=== PATIENT | female | born 1975 | race Caucasian/White ===

== ENCOUNTER 2017-07-16 19:15 | Emergency (ER) | payer SELFPAY ==
[2017-07-16 19:28] VITALS: BP 116/63
--- NOTE | 2017-07-16 20:03 | ER Document Report ---
HPI - HPI Pain Level: 4 - REPRODUCTIVE Reproductive: DENIES: : Past Medical History - Social History Family History: Reviewed & Not Pertinent Pulmonary Medical History: Reports: Hx Asthma, Hx Bronchitis, Hx COPD, Hx Sleep Apnea Neurological Medical History: Reports: Hx Migraine, Hx Seizures Endocrine Medical History: Reports: Hx Diabetes Mellitus Type 2 GI Medical History: Reports: Hx Gastroesophageal Reflux Disease Psychiatric Medical History: Reports: Hx Bipolar Disorder, Hx Depression Past Surgical History: Reports: Hx Bowel Surgery, Hx Cholecystectomy, Hx Tubal Ligation - Immunizations Hx Diphtheria, Pertussis, Tetanus Vaccination: No Hx Pneumococcal Vaccination: 08/11/11 Vertical Provider Document - INFECTION CONTROL TRAVEL OUTSIDE OF THE [place] IN LAST 30 DAYS: No Course - Vital Signs Vital signs: Temp Pulse Resp BP Pulse Ox 99.1 F 72 18 116/63 99 07/16/17 19:26 07/16/17 19:26 07/16/17 19:26 07/16/17 19:26 07/16/17 19:26
[2017-07-16] MEDS ORDERED: TRAMADOL HCL 50 MG TABLET PO ONE (20:10)
[2017-07-16] MEDS ORDERED: SULFAMETHOXAZOLE/TRIMETHOPRIM 800-160 MG TABLET PO ONE (20:10)
--- NOTE | 2017-07-16 20:16 | ER Document Report ---
ED Skin Rash/Insect Bite/Abscs - General Chief Complaint: Abscess Stated Complaint: INSECT BITE Time Seen by Provider: 07/16/17 20:03 Mode of Arrival: Ambulatory Information source: Patient TRAVEL OUTSIDE OF THE [place] IN LAST 30 DAYS: No - HPI Patient complains to provider of: Tender/swollen area Notes: Patient is here with complaints of possible spider bite to the right knee. She states that 2 weeks ago she noticed what she thought was a spider bite to the medial aspect of the right knee. She states that she developed a painful swollen area that then turned to a ulcerated type area. She was concerned that it could be a brown recluse bite. States that it got red and seemed actually improved. She states that 2 days ago she put the same pants on and thought she felt something bite her on the knee again and she now has a red swollen area in the front of the patellar area. No fever. No diabetes. No numbness, tingling , weakness. No nausea, vomiting, diarrhea. No difficulty breathing or swallowing. She did not actually see what she was bit by. No other complaints at this time. - Related Data Allergies/Adverse Reactions: Penicillins Allergy (Mild, Verified 07/16/17 19:21) Hives morphine [Morphine] Adverse Reaction (Mild, Verified 07/16/17 19:21) abdominal pain ketorolac tromethamine [From Toradol] Adverse Reaction (Verified 07/16/17 19:21) abdominal pain Past Medical History - Social History Smoking Status: Current Every Day Smoker Family History: Reviewed & Not Pertinent Pulmonary Medical History: Reports: Hx Asthma, Hx Bronchitis, Hx COPD, Hx Sleep Apnea Neurological Medical History: Reports: Hx Migraine, Hx Seizures Endocrine Medical History: Reports: Hx Diabetes Mellitus Type 2 GI Medical History: Reports: Hx Gastroesophageal Reflux Disease Psychiatric Medical History: Reports: Hx Bipolar Disorder, Hx Depression Past Surgical History: Reports: Hx Bowel Surgery, Hx Cholecystectomy, Hx Tubal Ligation - Immunizations Hx Diphtheria, Pertussis, Tetanus Vaccination: No Hx Pneumococcal Vaccination: 08/11/11 Review of Systems - Review of Systems -: Yes All other systems reviewed and negative Physical Exam - Vital signs Vitals: Temp Pulse Resp BP Pulse Ox 99.1 F 72 18 116/63 99 07/16/17 19:26 07/16/17 19:26 07/16/17 19:26 07/16/17 19:26 07/16/17 19:26 - Notes Notes: GENERAL: alert, cooperative, nontoxic, no distress. HEAD: normocephalic, atraumatic EYES: conjunctiva pink without discharge, no external redness or swelling. EARS: no external swelling, no external redness NOSE: atraumatic, no external swelling MOUTH/THROAT: mucous membranes moist and pink NECK: soft, supple, full range of motion, no meningismus. CHEST: no distress, lungs clear and equal throughout. No wheezing, rales, rhonchi. CARDIAC: regular rate and rhythm, no murmur, normal capillary refill, normal pulses. BACK: full range of motion, no CVA tenderness. EXTREMITIES: full range of motion of all extremities. No redness, no swelling. NEURO: alert and oriented 3, no focal deficits, full range of motion of all extremities. PYSCH: appropriate mood, affect. Patient is cooperative. SKIN: pink, warm, dry, no rash. 1 cm ulcerated area to the right medial knee. No surrounding redness. Minimal tenderness. No fluctuant abscess. Small scabbed area to the patellar area of the right knee with tenderness to palpation in approximately 3 cm of surrounding erythema. Tenderness to palpation. No fluctuance. Full flexion and extension of the knee with no sign of joint effusion or joint infection. Course - Re-evaluation Re-evalutation: 07/16/17 20:13 Patient is nontoxic appearing with stable vitals. She is here with complaints of possible bite to her right knee. States that 2 weeks ago she developed a sore to the medial aspect of the right knee and she is concerned it could have been a brown recluse bite. She put same pants on again few days ago and felt like she was bit by something again on the knee and she now has what appears to be a very early abscess with some mild cellulitis. There is no sign of joint infection. She is afebrile. She is full range of motion of the joint. There is no circumferential redness. There is slightly tender to palpation. Is not fluctuant and does not appear to be ready for an I&D. At this point the patient will be given a dose of Bactrim and will be discharged home with a prescription for Bactrim as well as Ultram. Instructions to put warm compresses on the sore area. We outlined the redness on her knee. She was instructed to follow-up if this is not improving in the next 2 days, sooner for worsening pain, fever, increased redness, increased swelling, or for any further concerns. The patient's emergency department workup and current diagnosis were explained to the patient and or family. Follow-up instructions were provided. Medications if prescribed were discussed. Instructions for when to return to the emergency department including specific worrisome symptoms were discussed with the patient and/or family. - Vital Signs Vital signs: Temp Pulse Resp BP Pulse Ox 99.1 F 72 18 116/63 99 07/16/17 19:26 07/16/17 19:26 07/16/17 19:26 07/16/17 19:26 07/16/17 19:26 Discharge - Discharge Clinical Impression: Abscess of right knee Condition: Stable Disposition: HOME, SELF-CARE Instructions: Abscess ([facility]), Trimethoprim-Sulfa ([facility]), Oral Narcotic Medication ([facility]) Additional Instructions: Take medication as prescribed. Apply warm compresses to sore area. Follow-up if not improving in the next 2 days, sooner for worsening pain, fever, worsening redness or swelling, numbness, tingling, weakness, redness to the entire knee, or for any further concerns. The medication you were prescribed today may cause drowsiness. Do not drive or operate heavy machinery while taking this medication. Prescriptions: Tramadol HCl [Ultram 50 mg Tablet] 50 mg PO Q6HP PRN #10 tablet PRN Reason: Sulfamethoxazole/Trimethoprim [Bactrim Ds Tablet] 1 each PO BID #20 tablet Forms: Smoking Cessation Education Referrals: [facility] [Provider Group] - Follow up as needed
== END 2017-07-16 20:16 | disposition home or self-care (01) ==
LOC: ER 19:15
DX: L02.415 Cutaneous abscess of right lower limb (principal); E11.9 Type 2 diabetes mellitus without complications; J44.9 Chronic obstructive pulmonary disease, unspecified; F17.200 Nicotine dependence, unspecified, uncomplicated; Z88.0 Allergy status to penicillin; Z88.5 Allergy status to narcotic agent; Z88.8 Allergy status to other drugs, medicaments and biological substances
CPT/HCPCS: 99282

== ENCOUNTER 2018-04-11 01:14 | Emergency (ER) | payer SELFPAY ==
--- NOTE | 2018-04-11 02:38 | RADIOLOGY REPORT (SQ) ---
EXAM DESCRIPTION: XR CHEST 1 VIEW COMPLETED DATE/TME: 04/11/2018 01:48 CLINICAL HISTORY: 42 years, Female, rib pain, sob COMPARISON: Chest radiograph March 2014. NUMBER OF VIEWS: One TECHNIQUE: AP view of the chest LIMITATIONS: None. FINDINGS: Lungs are clear. There are no pleural abnormalities. The cardiac silhouette is mildly enlarged. Posterior sixth rib fracture on the right. The posterior right seventh rib is not clearly visualized. Questionable subcutaneous emphysema in the right breast but no pneumothorax is visualized. IMPRESSION: Acute appearing right posterior sixth rib fracture. The right seventh rib is not clearly visualized posteriorly and may be eroded. Recommend CT chest for further evaluation. copyright 2010 [employer]- All Rights Reserved
[2018-04-11] MEDS ORDERED: TRAMADOL HCL 50 MG TABLET PO ONE (02:41)
[2018-04-11] MEDS ORDERED: LIDOCAINE 5% (700 MG) TRANSDERMAL ADH..PATCH TP ONE (02:41)
[2018-04-11] MEDS ORDERED: OXYCODONE HCL IR 5 MG TABLET PO ONE (02:41)
[2018-04-11] MEDS ORDERED: ACETAMINOPHEN 325 MG TABLET PO ONE (02:41)
[2018-04-11] MEDS ORDERED: IPRATROPIUM/ALBUTEROL 0.5-2.5 MG/3 ML AMPUL NEB ONE (02:42)
[2018-04-11] MEDS ORDERED: HYDROCODONE/ACETAMINOPHEN 5-325 MG (6 TAB/ER DISP) PO PRN (02:43)
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
[2018-04-11 04:39] VITALS: BP 111/66
== END 2018-04-11 05:15 | disposition home or self-care (01) ==
LOC: ER 01:14
DX: S22.31XD Fracture of one rib, right side, subsequent encounter for fracture with routine healing (principal); V49.60XD Unspecified car occupant injured in collision with unspecified motor vehicles in traffic accident, subsequent encounter; J44.9 Chronic obstructive pulmonary disease, unspecified; F17.200 Nicotine dependence, unspecified, uncomplicated; E11.9 Type 2 diabetes mellitus without complications; Z88.0 Allergy status to penicillin
CPT/HCPCS: 94640; 99284; 71045; J7620

== ENCOUNTER 2018-08-20 21:36 | Emergency (ER) | payer SELFPAY ==
[2018-08-20] MEDS ORDERED: ONDANSETRON HCL INJ/PF 4 MG/2 ML SDV IM ONE (22:12)
--- NOTE | 2018-08-20 22:15 | ER Document Report ---
ED General - General Stated Complaint: OVERDOSE Time Seen by Provider: 08/20/18 22:06 Mode of Arrival: Medic Information source: Patient, Relative, Emergency Med Personnel Notes: This is a 42-year-old female with a history of asthma, seizures and polysubstance abuse who was brought in by EMS after an overdose. Patient was given intranasal Narcan in the field after which she became alert and oriented x4. Initially reported as agonal respirations on EMS arrival. Patient's daughter is in the emergency room and states that the patient has done this in the past. Patient states she is only used heroin 4 times in total. She is actively vomiting. TRAVEL OUTSIDE OF THE [place] IN LAST 30 DAYS: No - HPI Onset: Just prior to arrival Onset/Duration: Sudden Quality of pain: No pain Pain Level: Denies Associated symptoms: denies: Chest pain, Fever, Shortness of breath Exacerbated by: Denies Relieved by: Denies Similar symptoms previously: No Recently seen / treated by doctor: No - Related Data Allergies/Adverse Reactions: Penicillins Allergy (Mild, Verified 05/16/18 16:38) Hives morphine [Morphine] Adverse Reaction (Mild, Verified 05/16/18 16:38) abdominal pain ketorolac tromethamine [From Toradol] Adverse Reaction (Verified 05/16/18 16:38) abdominal pain Past Medical History - General Information source: Patient - Social History Smoking Status: Current Every Day Smoker Cigarette use (# per day): Yes - 1 pack/day Chew tobacco use (# tins/day): No Frequency of alcohol use: Heavy Drug Abuse: Heroin Lives with: Family Family History: Reviewed & Not Pertinent Patient has suicidal ideation: No Patient has homicidal ideation: No - Past Medical History Cardiac Medical History: Reports: None Pulmonary Medical History: Reports: Hx Asthma, Hx Bronchitis, Hx COPD, Hx Sleep Apnea Neurological Medical History: Reports: Hx Migraine, Hx Seizures Endocrine Medical History: Reports: Hx Diabetes Mellitus Type 2 Renal/ Medical History: Denies: Hx Peritoneal Dialysis GI Medical History: Reports: Hx Gastroesophageal Reflux Disease Psychiatric Medical History: Reports: Hx Bipolar Disorder, Hx Depression Past Surgical History: Reports: Hx Abdominal Surgery, Hx Bowel Surgery, Hx Chol ecystectomy, Hx Tubal Ligation - Immunizations Hx Diphtheria, Pertussis, Tetanus Vaccination: No Hx Pneumococcal Vaccination: 08/11/11 Review of Systems - Review of Systems Constitutional: denies: Chills, Fever EENT: No symptoms reported Cardiovascular: No symptoms reported Respiratory: See HPI Gastrointestinal: No symptoms reported Genitourinary: No symptoms reported Female Genitourinary: No symptoms reported Musculoskeletal: No symptoms reported Skin: No symptoms reported Hematologic/Lymphatic: No symptoms reported Neurological/Psychological: See HPI Physical Exam - Vital signs Vitals: Temp 98.1 F 08/20/18 21:48 Notes: Physical exam: GENERAL: This is a 42-year-old female who is alert and oriented x3, she is upset over tonight's events and actively vomiting. HEAD: Atraumatic, normocephalic. EYES: Pupils equal round and reactive to light, extraocular movements intact, sclera anicteric, conjunctiva are normal. ENT: Significant dental caries. Moist mucous membranes. NECK: Normal range of motion, supple without obvious mass or JVD. LUNGS: Breath sounds clear to auscultation bilaterally and equal. No wheezes rales or rhonchi. HEART: Regular rate and rhythm without murmurs, rubs or gallops. ABDOMEN: Soft, normoactive bowel sounds. Actively vomiting. No tenderness to palpation. No guarding, no rebound. No masses appreciated. EXTREMITIES: Normal range of motion, no pitting or edema. No clubbing or cyanosis. NEUROLOGICAL: Cranial nerves II through XII grossly intact. Normal speech, moving all extremities. SKIN: Warm, Dry, normal turgor, no rashes or lesions noted. Course - Re-evaluation Re-evalutation: 08/21/18 04:02 Patient has been alert and stable. He has no symptoms of UTI. We will send a urine culture. - Vital Signs Vital signs: Temp Pulse Resp BP Pulse Ox 98.1 F 15 111/64 96 08/21/18 00:00 08/21/18 03:01 08/21/18 03:01 08/21/18 03:01 - Laboratory Laboratory results interpreted by me: 08/20/18 22:35 Urine Protein 100 H Urine Blood LARGE H Ur Leukocyte Esterase TRACE H - EKG Interpretation by Me Rate: Normal Rhythm: NSR - EKG shows normal sinus rhythm with a ventricular rate of 76, no acute ST-T wave changes Discharge - Discharge Clinical Impression: Heroin overdose Condition: Stable Disposition: HOME, SELF-CARE Additional Instructions: Its important that you stop using heroin. It will kill you. As of 2017, the [place] Division of Public Health recommends the precription of Narcan (Naloxone) to patient's discharged after an opiod o verdose. Naloxone is an injection that reverses the respiratory depression caused by opiates and is life-saving in many cases. Of course, it is recommended that you stop any narcotic or opiate use/abuse. However, if this is not possible, you should always carry the Naloxone with you and let family/friends know that you have this reversal antidote. Information on Naloxone can be found on: www.naloxonesaves.org Additionally: If you are using syringes with drug use, you should know that syringe exchange programs are effective in reducing the rates of HIV and Hepatitis C. Information available for syring programs can be found at: www/ncdhhs.gov/divisions/public-health/gkkal-vhtlvdrm-jcrfq-syringe-initiative/s nedvq-ijtubuhn-wwyateyk-wisner Prescriptions: Naloxone HCl [Narcan] 4 mg NS ONCE PRN #1 spray PRN Reason:
[2018-08-21 01:04] LABS: APPEARANCE,URINE TURBID; BILIRUBIN,URINE NEGATIVE (NEGATIVE); COLOR,URINE AMBER; GLUCOSE, URINE NEGATIVE (NEGATIVE); KETONES,URINE NEGATIVE (NEGATIVE); LEUKOCYTE ESTERASE,URINE TRACE (NEGATIVE); NITRITE,URINE NEGATIVE (NEGATIVE); PROTEIN,URINE 100 mg/dL (NEGATIVE); URINE SPECIFIC GRAVITY 1.026; UROBILINOGEN,URINE NEGATIVE mg/dL (<2.0)
[2018-08-21 03:44] VITALS: BP 111/64
--- NOTE | 2018-08-21 07:41 | EKG REPORT ---
SEVERITY:- BORDERLINE ECG - SINUS RHYTHM BORDERLINE T ABNORMALITIES, INFERIOR LEADS BORDERLINE PROLONGED QT INTERVAL : Confirmed by: Mega Nunez MD 21-Aug-2018 07:41:32
== END 2018-08-21 05:45 | disposition home or self-care (01) ==
LOC: ER 21:36
DX: T40.1X1A Poisoning by heroin, accidental (unintentional), initial encounter (principal); Y92.59 Other trade areas as the place of occurrence of the external cause; R11.10 Vomiting, unspecified; J44.9 Chronic obstructive pulmonary disease, unspecified; E11.9 Type 2 diabetes mellitus without complications; F17.210 Nicotine dependence, cigarettes, uncomplicated; Z88.0 Allergy status to penicillin; Z88.5 Allergy status to narcotic agent
CPT/HCPCS: 93005; 99284; 96372; 87086; 81001; 93010; J2405